=== PATIENT | female | born 1970 | race Caucasian/White ===

== ENCOUNTER 2020-10-08 12:48 | Emergency (ER) | payer BC ==
[2020-10-08 13:19] LABS: Absolute Neutrophil Ct (ANC) 7.37 (1.4-6.9); Basophil (Absolute #) 0 (0-0.4); Eosinophil % 0.2 % (0.00-5.0); Eosinophil (Absolute #) 0.02 (0-0.5); Hematocrit 45.2 % (35-47); Hemoglobin 14.8 gm/dl (12.0-16.0); Lymphocyte (Absolute #) 0.71 (1.0-4.6); Lymphocytes % 8.3 % (24.0-44.0); Mean Cell Volume 91.9 fl (78-100); Mean Corpuscular Hemoglobin 30.1 pg (26-32); Mean Corpuscular Hgb Concent. 32.7 g/dl (32-36); Mean Platelet Volume 10.7 fl (7.5-11.0); Monocyte (Absolute #) 0.43 (0.0-1.3); Neutrophil % 86.5 % (36.0-66.0); Platelet Count 209 K/mm3 (150-450); Red Blood Count 4.92 M/mm3 (4.1-5.4); Red Cell Distribution Width 12.7 % (11.5-14.0); White Blood Count 8.5 K/mm3 (4.0-10.5)
[2020-10-08 13:29] LABS: ALBUMIN 4.2 g/dL (3.5-5.0); ALKALINE PHOSPHATASE 76 U/L (38-126); ANION GAP 10.8 MEQ/L (5-15); BLOOD UREA NITROGEN 8 mg/dL (7-17); CHLORIDE 103 mmol/L (98-107); Calcium 8.6 mg/dL (8.4-10.2); Carbon Dioxide 25 mmol/L (22-30); Creatinine 1 0.58 mg/dL (0.52-1.04); EST GLOMERULAR FILTRATION RATE > 60.0 ML/MIN; Glucose 134 mg/dL (74-106); MAGNESIUM 1.9 mg/dL (1.6-2.3); Potassium 3.9 mmol/L (3.5-5.1); SGOT/AST 40 U/L (14-36); SGPT/ALT 36 U/L (0-35); SODIUM 135 mmol/L (137-145); Total Protein 7.8 g/dL (6.3-8.2)
--- NOTE | 2020-10-08 13:31 | ERPHSYRPT ---
- History of Present Illness Time Seen by Provider: 10/08/20 12:50 Source: patient Exam Limitations: no limitations Patient Subjective Stated Complaint: pt here for sob and pain to her chest since this morning. pt was covd 19 postive on thursday, Triage Nursing Assessment: pt alert, resp easy, skin w/d/p, has face mask in place, no edema noted, moves all ext well Physician History: Patient is a 49-year-old female with Covid positive presents to our ED with chest pain and shortness of breath. Symptoms started today. Symptoms are constant. Symptoms are mild to moderate in intensity. No associated nausea or vomiting. No diaphoresis. No diarrhea. No specific worsening or improving factors. Patient voices no other complaints or concerns at this time. Severity: moderate Modifying Factors: Improves With: nothing Associated Symptoms: denies symptoms, No diaphoresis, No cough, No headaches, No syncope, No seizure Allergies/Adverse Reactions: No Known Drug Allergies Allergy (Unverified 10/08/20 16:43) Home Medications: Unobtainable 10/08/20 [History] Hx Tetanus, Diphtheria Vaccination/Date Given: Yes Hx Influenza Vaccination/Date Given: Yes Hx Pneumococcal Vaccination/Date Given: No Immunizations Up to Date: Yes Travel Risk - International Travel Have you traveled outside of the country in past 3 weeks: No - Coronavirus Screening Are you exhibiting any of the following symptoms?: Yes Symptoms: Shortness of Breath Close contact with a COVID-19 positive Pt in past 14-21 Days: No - Review of Systems Constitutional: No Symptoms, No Fever, No Chills Eyes: No Symptoms Ears, Nose, & Throat: No Symptoms Respiratory: No Symptoms, No Cough, No Dyspnea Cardiac: No Symptoms, No Chest Pain, No Edema, No Syncope Abdominal/Gastrointestinal: No Symptoms, No Abdominal Pain, No Nausea, No Vomiting, No Diarrhea Genitourinary Symptoms: No Symptoms, No Dysuria Musculoskeletal: No Symptoms, No Back Pain, No Neck Pain Skin: No Symptoms, No Rash Neurological: No Symptoms, No Dizziness, No Focal Weakness, No Sensory Changes Psychological: No Symptoms Endocrine: No Symptoms Hematologic/Lymphatic: No Symptoms Immunological/Allergic: No Symptoms All Other Systems: Reviewed and Negative - Past Medical History Pertinent Past Medical History: Yes Neurological History: Migraines ENT History: No Pertinent History Cardiac History: Other Respiratory History: Asthma, Other Endocrine Medical History: No Pertinent History Musculoskeletal History: Fibromyalgia, Osteoarthritis, Rheumatoid Arthritis GI Medical History: No Pertinent History History: No Pertinent History Female Reproductive Disorders: No Pertinent History Other Medical History: Rheumatoid Lung, 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 t/a. - Social History Smoking Status: Unknown if ever smoked Exposure to second hand smoke: No Drug Use: none Patient Lives Alone: No - Female History Hx Last Menstrual Period: ablasion Hx Now: No - Nursing Vital Signs Nursing Vital Signs: Initial Vital Signs Temperature 97.7 F 10/08/20 12:50 Pulse Rate 64 10/08/20 12:50 Respiratory Rate 18 10/08/20 12:50 Blood Pressure 134/80 10/08/20 12:50 O2 Sat by Pulse Oximetry 100 10/08/20 12:50 Pain Scale Pain Intensity 2 - Physical Exam General Appearance: no apparent distress, alert Eye Exam: PERRL/EOMI, eyes nml inspection Ears, Nose, Throat Exam: normal ENT inspection, TMs normal, pharynx normal, moist mucous membranes Neck Exam: normal inspection, non-tender, supple, full range of motion Respiratory Exam: normal breath sounds, lungs clear, No respiratory distress Cardiovascular Exam: regular rate/rhythm, normal heart sounds, normal peripheral pulses Gastrointestinal/Abdomen Exam: soft, normal bowel sounds, No tenderness, No mass Back Exam: normal inspection, normal range of motion, No CVA tenderness, No vertebral tenderness Extremity Exam: normal inspection, normal range of motion, pelvis stable Neurologic Exam: alert, oriented x 3, cooperative, normal mood/affect, nml cerebellar function, nml station & gait, sensation nml, No motor deficits Skin Exam: normal color, warm, dry, No rash Lymphatic Exam: No adenopathy SpO2 Interpretation: normal SpO2: 100 O2 Delivery: Room Air - Course Nursing assessment & vital signs reviewed: Yes EKG Interpreted by Me: RATE (63), Sinus Rhythm, NORMAL AXIS, NORMAL INTERVALS - Radiology Exams Chest X-ray Interpretation: Teleradiologist Report (Mild bibasilar infiltrates versus atelectasis. Remaining heart upper lobes and bony thorax normal.) - CT Exams Chest CT Interpretation: Tele-radiologist Report (For PE. Subcentimeter peripheral bilateral lower lobe airspace disease. Indeterminate 1.3 cm left upper lobe subpleural irregularity masslike density. PET/CT scan may be of further information. Incidental small hiatal hernia) Ordered Tests: Active Orders 24 hr Category Date Time Status Tie Cutter STAT Care 10/08/20 13:05 Completed EKG-ER Only STAT Care 10/08/20 13:04 Completed IV Insertion STAT Care 10/08/20 13:04 Completed Pulse Oximetry (ED) STAT Care 10/08/20 13:04 Completed CHEST 1 VIEW (PORTABLE) Stat Exams 10/08/20 13:05 Completed CHEST WITH CONTRAST [CT] Stat Exams 10/08/20 14:06 Completed CBC W DIFF Stat Lab 10/08/20 13:04 Completed CMP Stat Lab 10/08/20 13:10 Completed CULTURE,URINE Stat Lab 10/08/20 13:13 Received D-DIMER QUANTITATIVE Stat Lab 10/08/20 13:27 Completed HCG,QUALITATIVE URINE Stat Lab 10/08/20 13:13 Completed MAGNESIUM Stat Lab 10/08/20 13:10 Completed TROPONIN Q3H Lab 10/08/20 13:15 Completed TROPONIN Q3H Lab 10/08/20 15:55 Completed UA W/RFX UR CULTURE Stat Lab 10/08/20 13:13 Completed Lab/Rad Data: Laboratory Result Diagrams 10/08/20 13:04 10/08/20 13:10 Laboratory Results 10/08/20 10/08/20 10/08/20 Range/Units 15:55 13:27 13:15 WBC (4.0-10.5) K/mm3 RBC (4.1-5.4) M/mm3 Hgb (12.0-16.0) gm/dl Hct (35-47) % MCV (78-100) fl MCH (26-32) pg MCHC (32-36) g/dl RDW (11.5-14.0) % Plt Count (150-450) K/mm3 MPV (7.5-11.0) fl Gran % (36.0-66.0) % Eos # (Auto) (0-0.5) Absolute Lymphs (auto) (1.0-4.6) Absolute Monos (auto) (0.0-1.3) Lymphocytes % (24.0-44.0) % Monocytes % (0.0-12.0) % Eosinophils % (0.00-5.0) % Basophils % (0.0-0.4) % Absolute Granulocytes (1.4-6.9) Basophils # (0-0.4) D-Dimer 1507 H* (215-500) ng/mL Sodium (137-145) mmol/L Potassium (3.5-5.1) mmol/L Chloride (98-107) mmol/L Carbon Dioxide (22-30) mmol/L Anion Gap (5-15) MEQ/L BUN (7-17) mg/dL Creatinine (0.52-1.04) mg/dL Estimated GFR ML/MIN Glucose (74-106) mg/dL Calcium (8.4-10.2) mg/dL Magnesium (1.6-2.3) mg/dL Total Bilirubin (0.2-1.3) mg/dL AST (14-36) U/L ALT (0-35) U/L Alkaline Phosphatase (38-126) U/L Troponin I < 0.012 < 0.012 (0.000-0.034) ng/mL Serum Total Protein (6.3-8.2) g/dL Albumin (3.5-5.0) g/dL Urine Color (YELLOW) Urine Appearance (CLEAR) Urine pH (5-6) Ur Specific [place] (1.005-1.025) Urine Protein (Negative) Urine Ketones (NEGATIVE) Urine Blood (0-5) Buck/ul Urine Nitrite (NEGATIVE) Urine Bilirubin (NEGATIVE) Urine Urobilinogen (0-1) mg/dL Ur Leukocyte Esterase (NEGATIVE) Urine WBC (Auto) (0-5) /HPF Urine RBC (Auto) (0-2) /HPF U Epithel Cells (Auto) (FEW) /HPF Urine Bacteria (Auto) (NEGATIVE) /HPF Urine Mucus (Auto) (NEGATIVE) /HPF Urine Culture Reflexed (NO) Urine Glucose (NEGATIVE) mg/dL Urine HCG, Qual (Negative) 10/08/20 10/08/20 10/08/20 Range/Units 13:13 13:13 13:10 WBC (4.0-10.5) K/mm3 RBC (4.1-5.4) M/mm3 Hgb (12.0-16.0) gm/dl Hct (35-47) % MCV (78-100) fl MCH (26-32) pg MCHC (32-36) g/dl RDW (11.5-14.0) % Plt Count (150-450) K/mm3 MPV (7.5-11.0) fl Gran % (36.0-66.0) % Eos # (Auto) (0-0.5) Absolute Lymphs (auto) (1.0-4.6) Absolute Monos (auto) (0.0-1.3) Lymphocytes % (24.0-44.0) % Monocytes % (0.0-12.0) % Eosinophils % (0.00-5.0) % Basophils % (0.0-0.4) % Absolute Granulocytes (1.4-6.9) Basophils # (0-0.4) D-Dimer (215-500) ng/mL Sodium 135 L (137-145) mmol/L Potassium 3.9 (3.5-5.1) mmol/L Chloride 103 (98-107) mmol/L Carbon Dioxide 25 (22-30) mmol/L Anion Gap 10.8 (5-15) MEQ/L BUN 8 (7-17) mg/dL Creatinine 0.58 (0.52-1.04) mg/dL Estimated GFR > 60.0 ML/MIN Glucose 134 H (74-106) mg/dL Calcium 8.6 (8.4-10.2) mg/dL Magnesium 1.9 (1.6-2.3) mg/dL Total Bilirubin 0.30 (0.2-1.3) mg/dL AST 40 H (14-36) U/L ALT 36 H (0-35) U/L Alkaline Phosphatase 76 (38-126) U/L Troponin I (0.000-0.034) ng/mL Serum Total Protein 7.8 (6.3-8.2) g/dL Albumin 4.2 (3.5-5.0) g/dL Urine Color YELLOW (YELLOW) Urine Appearance SLIGHTLY CLOUDY (CLEAR) Urine pH 9.0 (5-6) Ur Specific [place] 1.017 (1.005-1.025) Urine Protein 30 (Negative) Urine Ketones NEGATIVE (NEGATIVE) Urine Blood MODERATE (0-5) Buck/ul Urine Nitrite NEGATIVE (NEGATIVE) Urine Bilirubin NEGATIVE (NEGATIVE) Urine Urobilinogen NEGATIVE (0-1) mg/dL Ur Leukocyte Esterase NEGATIVE (NEGATIVE) Urine WBC (Auto) NONE (0-5) /HPF Urine RBC (Auto) 26-50 (0-2) /HPF U Epithel Cells (Auto) RARE (FEW) /HPF Urine Bacteria (Auto) NONE (NEGATIVE) /HPF Urine Mucus (Auto) SLIGHT (NEGATIVE) /HPF Urine Culture Reflexed YES (NO) Urine Glucose NEGATIVE (NEGATIVE) mg/dL Urine HCG, Qual NEGATIVE (Negative) 10/08/20 Range/Units 13:04 WBC 8.5 (4.0-10.5) K/mm3 RBC 4.92 (4.1-5.4) M/mm3 Hgb 14.8 (12.0-16.0) gm/dl Hct 45.2 (35-47) % MCV 91.9 (78-100) fl MCH 30.1 (26-32) pg MCHC 32.7 (32-36) g/dl RDW 12.7 (11.5-14.0) % Plt Count 209 (150-450) K/mm3 MPV 10.7 (7.5-11.0) fl Gran % 86.5 H (36.0-66.0) % Eos # (Auto) 0.02 (0-0.5) Absolute Lymphs (auto) 0.71 L (1.0-4.6) Absolute Monos (auto) 0.43 (0.0-1.3) Lymphocytes % 8.3 L (24.0-44.0) % Monocytes % 5.0 (0.0-12.0) % Eosinophils % 0.2 (0.00-5.0) % Basophils % 0.0 (0.0-0.4) % Absolute Granulocytes 7.37 H (1.4-6.9) Basophils # 0 (0-0.4) D-Dimer (215-500) ng/mL Sodium (137-145) mmol/L Potassium (3.5-5.1) mmol/L Chloride (98-107) mmol/L Carbon Dioxide (22-30) mmol/L Anion Gap (5-15) MEQ/L BUN (7-17) mg/dL Creatinine (0.52-1.04) mg/dL Estimated GFR ML/MIN Glucose (74-106) mg/dL Calcium (8.4-10.2) mg/dL Magnesium (1.6-2.3) mg/dL Total Bilirubin (0.2-1.3) mg/dL AST (14-36) U/L ALT (0-35) U/L Alkaline Phosphatase (38-126) U/L Troponin I (0.000-0.034) ng/mL Serum Total Protein (6.3-8.2) g/dL Albumin (3.5-5.0) g/dL Urine Color (YELLOW) Urine Appearance (CLEAR) Urine pH (5-6) Ur Specific [place] (1.005-1.025) Urine Protein (Negative) Urine Ketones (NEGATIVE) Urine Blood (0-5) Buck/ul Urine Nitrite (NEGATIVE) Urine Bilirubin (NEGATIVE) Urine Urobilinogen (0-1) mg/dL Ur Leukocyte Esterase (NEGATIVE) Urine WBC (Auto) (0-5) /HPF Urine RBC (Auto) (0-2) /HPF U Epithel Cells (Auto) (FEW) /HPF Urine Bacteria (Auto) (NEGATIVE) /HPF Urine Mucus (Auto) (NEGATIVE) /HPF Urine Culture Reflexed (NO) Urine Glucose (NEGATIVE) mg/dL Urine HCG, Qual (Negative) - Progress Progress: improved Progress Note: 10/08 patient reassessed. She feels well. No chest pain. Troponin negative. D-dimer positive. CTA chest reveals negative PE. However there was an incidental left upper lobe masslike lesion that will require follow-up. Patient was informed of this mass and agrees to follow-up within 48 hours for reevaluation and to schedule outpatient follow-up for this incidental mass. 15:40 Counseled pt/family regarding: lab results, diagnosis, rad results - Departure Departure Disposition: Home Clinical Impression: Mass of left lung, Hiatal hernia, Microscopic hematuria Condition: Stable Critical Care Time: No Referrals: JIMENA CATHERINE [Primary Care Provider] - Instructions: Shortness of Breath (Dyspnea) (DC)
[2020-10-08 13:36] LABS: Appearance SLIGHTLY CLOUDY (CLEAR); Bilirubin NEGATIVE (NEGATIVE); Blood MODERATE Ery/ul (0-5); Epithelial Cells RARE /HPF (FEW); Glucose NEGATIVE (NEGATIVE); Ketones NEGATIVE (NEGATIVE); Leukocyte Esterase NEGATIVE (NEGATIVE); Mucus SLIGHT /HPF (NEGATIVE); Nitrite NEGATIVE (NEGATIVE); Protein,Urine Dip 30 (Negative); RBC 26-50 /HPF (0-2); Specific Gravity 1.017 (1.005-1.025); Urobilinogen NEGATIVE mg/dL (0-1)
--- NOTE | 2020-10-08 14:10 | XRAY ---
Indication: Chest pain. Positive Covid 19. Comparison: November 07, 2006. Portable chest demonstrates new minimal bibasilar infiltrates versus atelectasis. Remaining heart, upper lungs, and bony thorax normal.
--- NOTE | 2020-10-08 14:57 | XRAY ---
Indication: Short of breath. Positive Covid 19. Elevated d-dimer. Multiple contiguous axial images obtained through the chest using 80 cc Isovue 370 contrast and PE protocol. Comparison: None Good opacification of the pulmonary arteries to include the lobar and segmental branches. No pulmonary embolus. Heart is not enlarged. Aorta is normal in course and caliber. No pathologic mediastinal/hilar lymphadenopathy. Small hiatal hernia. Lungs demonstrates mild bibasilar dependent atelectasis. Right middle and right lower lobe demonstrates mild discoid atelectasis/scarring. Posterior lateral left upper lobe demonstrates 1.3 cm subpleural irregular masslike density (image 45) without pleural thickening. Posterior peripheral left and right lower lobe demonstrates subcentimeter patchy airspace opacity. No effusion. Bony thorax intact. Limited upper abdomen demonstrates cholecystectomy. Impression: 1. Negative pulmonary embolus. 2. Subcentimeter peripheral bilateral lower lobe airspace disease. 3. Indeterminant 1.3 cm left upper lobe subpleural irregular masslike density. PET/CT may yield further information. 4. Incidental small hiatal hernia.
[2020-10-08 16:09] VITALS: BP 142/98; PULSE 73
[2020-10-09 06:40] VITALS: O2SAT 100
== END 2020-10-08 16:45 | disposition home or self-care (01) ==
LOC: ED 12:48
DX: R91.8 Other nonspecific abnormal finding of lung field (principal); K44.9 Diaphragmatic hernia without obstruction or gangrene; R31.29 Other microscopic hematuria; R06.02 Shortness of breath; R07.9 Chest pain, unspecified
CPT/HCPCS: 36000; 36415; 71045; 71260; 80053; 81001; 83735; 84484; 84703; 85025; 85379; 87086; 93005; 93041; 94760; 99284